=== PATIENT | male | born 1970 | race Caucasian/White ===

== ENCOUNTER 2019-09-14 21:08 | Emergency (ER) | payer MEDICAID ==
[~2019-09-14] VITALS: Ht 180.3 cm; Wt 77.3 kg
[2019-09-14 21:11] VITALS: BP 144/83
[2019-09-14] MEDS ORDERED: PHEN100C4 PO (23:19)
[2019-09-14] MEDS ORDERED: LISI40TA4 PO (23:19)
[2019-09-14] MEDS ORDERED: AMLO10TA48 PO (23:19)
[2019-09-14] MEDS ORDERED: CARI3CAP PO (23:19)
[2019-09-14] MEDS ORDERED: PREG150C PO (23:19)
== END 2019-09-14 23:30 | disposition home or self-care (01) ==
LOC: ER 21:10
DX: M25.551 Pain in right hip (principal); I10 Essential (primary) hypertension; G89.29 Other chronic pain; F31.9 Bipolar disorder, unspecified; F17.200 Nicotine dependence, unspecified, uncomplicated; Z86.69 Personal history of other diseases of the nervous system and sense organs; Z79.899 Other long term (current) drug therapy
CPT/HCPCS: 99281; 99283

== ENCOUNTER 2019-09-17 12:54 | Emergency (ER) | payer MEDICAID ==
[~2019-09-17] VITALS: Ht 180.3 cm; Wt 80.0 kg
[~2019-09-17 12:54] MED LIST: AMLO10TA48 PO; CARI3CAP PO; LISI40TA4 PO; PHEN100C4 PO; PREG150C PO
[2019-09-17 12:57] VITALS: BP 148/81
[2019-09-17 17:29] LABS: ALANINE AMINOTRANSFERASE 36 U/L (12-78); ALBUMIN 3.3 G/DL (3.4-5.0); ALKALINE PHOSPHATASE 95 IU/L (46-116); ANION GAP 4 (8-16); ASPARTATE AMINO TRANSFERASE 29 U/L (10-37); BILIRUBIN,TOTAL 0.2 MG/DL (0.1-1.0); BLOOD UREA NITROGEN 15 MG/DL (7-18); BUN/CREATININE RATIO 18.5 (5.4-32.0); CALCIUM 8.7 MG/DL (8.5-10.1); CHLORIDE 106 MMOL/L (99-107); CREATININE 0.81 MG/DL (0.60-1.10); GLUCOSE 105 MG/DL (70-104); POTASSIUM 3.7 MMOL/L (3.5-5.1); SODIUM 139 MMOL/L (135-145); TOTAL CARBON DIOXIDE 28.6 MMOL/L (24-32); TOTAL PROTEIN 6.7 G/DL (6.4-8.2); eGFR > 90 ML/MIN
[2019-09-17] MEDS ORDERED: DOXY100C43 PO (17:38)
--- NOTE | 2019-09-17 17:56 | NUR ---
PT GIVEN PRINTED RX FOR DOXY. PT STATES "I CANT TAKE IT IT MAKES ME SPIT UP. I AM NOT ALLERGIC TO IT, IT JUST MAKES ME SPIT UP." INFORMED SHELL, SHE STATES THIS IS THE BEST ABX FOR HIS CONDITION, ENCOURAGE HIM TO TAKE IT WITH FOOD. INFORMED PT HE STATES UNDERSTANDING
== END 2019-09-17 18:07 | disposition home or self-care (01) ==
LOC: ER 12:55
DX: S60.413A Abrasion of left middle finger, initial encounter (principal); L03.012 Cellulitis of left finger; I10 Essential (primary) hypertension; G89.29 Other chronic pain; F31.9 Bipolar disorder, unspecified; R51 Headache; R11.10 Vomiting, unspecified; F17.200 Nicotine dependence, unspecified, uncomplicated; Z72.89 Other problems related to lifestyle; Z86.69 Personal history of other diseases of the nervous system and sense organs; Z79.899 Other long term (current) drug therapy; W26.8XXA Contact with other sharp object(s), not elsewhere classified, initial encounter; Y93.89 Activity, other specified; Y92.89 Other specified places as the place of occurrence of the external cause; Y99.8 Other external cause status
CPT/HCPCS: 36415; 80053; 99283

== ENCOUNTER 2019-09-20 07:52 | Emergency (ER) | payer MEDICAID ==
[~2019-09-20] VITALS: Ht 180.3 cm; Wt 78.8 kg
[~2019-09-20 07:52] MED LIST changes: +DOXY100C43 PO
[2019-09-20 07:57] VITALS: BP 153/90
--- NOTE | 2019-09-20 08:13 | NUR ---
APPLY APX OINTMENT TO LEFT MIDDLE FINGER WOUND AND APPLY GAUZE WITH TAPE. PT GIVEN ABX OINTMENT PACKETS FOR HOME.
== END 2019-09-20 08:19 | disposition home or self-care (01) ==
LOC: ER 07:53
DX: S60.413D Abrasion of left middle finger, subsequent encounter (principal); L03.012 Cellulitis of left finger; I10 Essential (primary) hypertension; G89.29 Other chronic pain; Z79.899 Other long term (current) drug therapy; W26.0XXD Contact with knife, subsequent encounter
CPT/HCPCS: 99281

== ENCOUNTER 2020-12-07 19:49 | Emergency (ER) | payer MEDICAID ==
[~2020-12-07] VITALS: Ht 177.8 cm; Wt 77.5 kg
[~2020-12-07 19:49] MED LIST changes: -DOXY100C43 PO; -LISI40TA4 PO
[2020-12-07 20:21] VITALS: BP 169/91
[2020-12-07] MEDS ORDERED: ketorolac tromethamine 15mg/ml inj. IM ONE (21:00)
[2020-12-07] MEDS ORDERED: cyclobenzaprine 10mg tablet PO ONE (21:00)
[2020-12-07] MEDS ORDERED: CYCL-1 PO (21:26)
[2020-12-07] MEDS ORDERED: IBUP-1984 PO (21:26)
== END 2020-12-07 21:47 | disposition home or self-care (01) ==
LOC: ER 19:50
DX: M25.561 Pain in right knee (principal); M25.551 Pain in right hip; G89.29 Other chronic pain; M79.604 Pain in right leg; I10 Essential (primary) hypertension; F31.9 Bipolar disorder, unspecified; F19.90 Other psychoactive substance use, unspecified, uncomplicated; Z86.69 Personal history of other diseases of the nervous system and sense organs; Z72.89 Other problems related to lifestyle; Z79.899 Other long term (current) drug therapy
CPT/HCPCS: 96372; 99283; J1885

== ENCOUNTER 2021-01-29 10:14 | Emergency (ER) | payer MEDICAID ==
[~2021-01-29] VITALS: Ht 177.8 cm; Wt 75.0 kg
[~2021-01-29 10:14] MED LIST changes: +CYCL-1 PO
[2021-01-29] MEDS ORDERED: naloxone 2mg/2ml inj IV ONE (10:50)
[2021-01-29] MEDS ORDERED: normal saline 1000ML IV soln IVB ONE (10:50)
[2021-01-29 11:06] LABS: BASOPHILS % (AUTO) 0.7 % (0-1); EOSINOPHILS # (AUTO) 0.1 X10'3 (0-0.9); EOSINOPHILS % (AUTO) 1.8 % (0-6); HEMOGLOBIN 10.9 g/dl (14.0-17.9); LYMPHOCYTES # (AUTO) 1.3 X10'3 (1.1-4.8); LYMPHOCYTES % (AUTO) 20.5 % (21-51); MEAN CORPUSCULAR HEMOGLOBIN 30.2 PG (27.0-31.0); MEAN CORPUSCULAR VOLUME 88.7 FL (78-98); MEAN PLATELET VOLUME 7.5 FL (7.4-10.4); MONOCYTES # (AUTO) 0.6 X10'3 (0-0.9); MONOCYTES % (AUTO) 8.7 % (2-12); NEUTROPHILS # (AUTO) 4.4 X10'3 (1.8-7.7); NEUTROPHILS % (AUTO) 68.3 % (42-75); PLATELET COUNT 218 X10'3 (140-440); RED BLOOD COUNT 3.61 X10'6 (4.70-6.10); RED CELL DISTRIBUTION WIDTH 13.6 % (11.5-14.5); WHITE BLOOD COUNT 6.5 X10'3 (4.5-11.0)
[2021-01-29 11:35] LABS: ALANINE AMINOTRANSFERASE 40 U/L (12-78); ALBUMIN 2.9 G/DL (3.4-5.0); ALBUMIN/GLOBULIN RATIO 0.8 (1.1-1.5); ALKALINE PHOSPHATASE 94 IU/L (46-116); ANION GAP 8 (8-16); ASPARTATE AMINO TRANSFERASE 31 U/L (10-37); BILIRUBIN,TOTAL 0.7 MG/DL (0.1-1.0); BLOOD UREA NITROGEN 20 MG/DL (7-18); BUN/CREATININE RATIO 19.4 (5.4-32.0); CALCIUM 7.6 MG/DL (8.5-10.1); CHLORIDE 110 MMOL/L (99-107); CREATININE 1.03 MG/DL (0.60-1.10); GLUCOSE 93 MG/DL (70-104); POTASSIUM 3.1 MMOL/L (3.5-5.1); SODIUM 143 MMOL/L (135-145); TOTAL CARBON DIOXIDE 25.1 MMOL/L (24-32); TOTAL PROTEIN 6.5 G/DL (6.4-8.2); eGFR 76 ML/MIN
[2021-01-29 11:45] LABS: ETHANOL < 0.010 GM/DL (0.0-0.010); TROPONIN I < 0.04 NG/ML (0.0-0.05)
[2021-01-29 12:03] LABS: URINE AMPHETAMINE SCREEN POSITIVE (Neg); URINE BARBITUATE SCREEN NEGATIVE (Neg); URINE BENZODIAZEPINES SCREEN NEGATIVE (Neg); URINE CANNABINOID SCREEN NEGATIVE (Neg); URINE COCAINE SCREEN NEGATIVE (Neg); URINE METHADONE SCREEN NEGATIVE (Neg); URINE OPIATE SCREEN NEGATIVE (Neg); URINE PHENCYCLIDINE SCREEN NEGATIVE (Neg)
[2021-01-29 12:08] LABS: CLARITY,URINE CLEAR (Clear); COLOR,URINE YELLOW (Yellow); GLUCOSE, URINE NEGATIVE (Neg); KETONES,URINE TRACE mg/dl (Neg); LEUKOCYTE ESTERASE ,URINE NEGATIVE (Neg); NITRITES, URINE NEGATIVE (Neg); OCCULT BLOOD,URINE TRACE-LYSED (Neg); PROTEIN,URINE NEGATIVE (Neg); UROBILINOGEN,URINE 0.2 E.U/dL (0.2-1.0)
[2021-01-29 12:19] LABS: UA COLLECTION TYPE STRAIGHT CATH
[2021-01-29 12:21] LABS: SQUAMOUS EPITHELIAL CELL,UR FEW /LPF (FEW); TRANSITIONAL EPI CELLS,URINE FEW /HPF
[2021-01-29 12:22] LABS: BACTERIA,URINE NONE SEEN /HPF (Neg); CAL OXALATE CRYSTALS 1+ /HPF (NEGATIVE); RBC,URINE 0-2 /HPF (0-2); WBC,URINE 0-4 /HPF (0-4)
[2021-01-29] MEDS ORDERED: nitroGLYCERIN 0.4mg/hour patch TD ONE (13:40)
[2021-01-29 15:52] LABS: PHENYTOIN (DILANTIN) < 0.5 UG/ML (10.0-20.0)
[2021-01-29 16:26] VITALS: BP 145/106
== END 2021-01-29 18:08 | disposition home or self-care (01) ==
LOC: ER 10:15
DX: F15.10 Other stimulant abuse, uncomplicated (principal); R41.82 Altered mental status, unspecified; R45.1 Restlessness and agitation; I10 Essential (primary) hypertension; G89.29 Other chronic pain; F31.9 Bipolar disorder, unspecified; F19.90 Other psychoactive substance use, unspecified, uncomplicated; Z86.69 Personal history of other diseases of the nervous system and sense organs; Z72.89 Other problems related to lifestyle; Z79.899 Other long term (current) drug therapy
CPT/HCPCS: 36415; 70450; 71045; 80053; 80185; 80305; 80320; 81001; 84484; 85025; 93005; 96374; 99285; J2310; J7030

== ENCOUNTER 2021-03-21 21:07 | Emergency (ER) | payer MEDICAID ==
[~2021-03-21] VITALS: Ht 180.3 cm; Wt 75.0 kg
[2021-03-21 21:28] VITALS: BP 143/78
[2021-03-22] MEDS ORDERED: ketorolac tromethamine 15mg/ml inj. IM ONE (02:40)
== END 2021-03-22 02:38 | disposition home or self-care (01) ==
LOC: ER 21:08
DX: S16.1XXA Strain of muscle, fascia and tendon at neck level, initial encounter (principal); I10 Essential (primary) hypertension; G89.29 Other chronic pain; F31.9 Bipolar disorder, unspecified; F15.90 Other stimulant use, unspecified, uncomplicated; F19.90 Other psychoactive substance use, unspecified, uncomplicated; Z86.69 Personal history of other diseases of the nervous system and sense organs; Z72.89 Other problems related to lifestyle; Z79.899 Other long term (current) drug therapy; W19.XXXA Unspecified fall, initial encounter; Y93.89 Activity, other specified; Y92.89 Other specified places as the place of occurrence of the external cause; Y99.8 Other external cause status
CPT/HCPCS: 96372; 99283; J1885

== ENCOUNTER 2021-04-12 19:59 | Emergency (ER) | payer MEDICAID ==
[~2021-04-12] VITALS: Ht 180.3 cm; Wt 77.3 kg
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
[2021-04-12 20:39] LABS: BASOPHILS # (AUTO) 0.1 X10'3 (0-0.2); BASOPHILS % (AUTO) 0.5 % (0-1); EOSINOPHILS # (AUTO) 0.2 X10'3 (0-0.9); EOSINOPHILS % (AUTO) 1.6 % (0-6); HEMATOCRIT 35.4 % (42.0-52.0); HEMOGLOBIN 11.7 g/dl (14.0-17.9); LYMPHOCYTES # (AUTO) 1.3 X10'3 (1.1-4.8); LYMPHOCYTES % (AUTO) 10.3 % (21-51); MEAN CORPUSCULAR HEMOGLOBIN 29.7 PG (27.0-31.0); MEAN CORPUSCULAR HGB CONC 33.1 g/dL (33.0-36.5); MEAN CORPUSCULAR VOLUME 89.8 FL (78-98); MEAN PLATELET VOLUME 7.3 FL (7.4-10.4); MONOCYTES % (AUTO) 7.5 % (2-12); NEUTROPHILS # (AUTO) 10.4 X10'3 (1.8-7.7); NEUTROPHILS % (AUTO) 80.1 % (42-75); PLATELET COUNT 318 X10'3 (140-440); RED BLOOD COUNT 3.94 X10'6 (4.70-6.10)
[2021-04-12 20:56] LABS: ALANINE AMINOTRANSFERASE 24 U/L (12-78); ALBUMIN 3.4 G/DL (3.4-5.0); ALBUMIN/GLOBULIN RATIO 0.7 (1.1-1.5); ALKALINE PHOSPHATASE 130 IU/L (46-116); ANION GAP 6 (8-16); ASPARTATE AMINO TRANSFERASE 23 U/L (10-37); BILIRUBIN,TOTAL 0.5 MG/DL (0.1-1.0); BLOOD UREA NITROGEN 28 MG/DL (7-18); BUN/CREATININE RATIO 21.7 (5.4-32.0); CHLORIDE 94 MMOL/L (99-107); CREATININE 1.29 MG/DL (0.60-1.10); GLUCOSE 111 MG/DL (70-104); POTASSIUM 3.1 MMOL/L (3.5-5.1); SODIUM 126 MMOL/L (135-145); TOTAL CARBON DIOXIDE 25.8 MMOL/L (24-32); TOTAL PROTEIN 8.3 G/DL (6.4-8.2); eGFR 59 ML/MIN
[2021-04-12] MEDS ORDERED: temazepam 15mg capsule PO PRN (21:00)
[2021-04-12] MEDS ORDERED: iohexol 300mg/ml 100ml inj. ONE (21:06)
[2021-04-12] MEDS ORDERED: piperacillin/tazo 4.5gm/100ml 100 ML IV ONE (21:17)
[2021-04-12] MEDS ORDERED: VANCOMYCIN 1,500MG inj. 1,500 MG in normal saline 500ml IV soln 300 ML IV ONE (21:18)
[2021-04-12 21:21] LABS: C-REACTIVE PROTEIN 3.55 MG/DL (0.0-0.5)
[2021-04-12] MEDS ORDERED: ondansetron/PF 4mg/2ml inj IV PRN (21:45)
[2021-04-12] MEDS ORDERED: acetaminophen 325mg tablet PO PRN ×2 (21:45)
[2021-04-12] MEDS ORDERED: morphine 2 MG/ML inj. syringe IV PRN ×2 (21:45)
[2021-04-12] MEDS ORDERED: diphenhydrAMINE 25mg capsule PO PRN (21:45)
[2021-04-12] MEDS ORDERED: potassium Cl 20 mEq SR tablet PO PRN (21:45)
[2021-04-12] MEDS ORDERED: magnesium hydroxide 30ml (MOM) UD suspension PO PRN (21:45)
[2021-04-12] MEDS ORDERED: HYDROmorphone inj. 0.5 MG/0.5 ML DISP.SYRIN IV PRN (21:45)
[2021-04-12] MEDS ORDERED: mag hydrox/Alum hydrox/simeth 30ml oral suspension PO PRN (21:45)
[2021-04-12] MEDS ORDERED: bisacodyl 10mg suppository rectal RC PRN (21:45)
[2021-04-12] MEDS ORDERED: diphenhydrAMINE 50 mg/ml inj IV PRN (21:45)
[2021-04-12] MEDS ORDERED: HYDROcodone/acetaminophen 5mg/325mg tablet PO PRN (21:45)
[2021-04-12] MEDS ORDERED: ondansetron 4mg rapidly disintigrating tab PO PRN (21:45)
[2021-04-12] MEDS ORDERED: normal saline 1000ml 1,000 ML IV SCH (21:45)
[2021-04-12] MEDS ORDERED: HYDROcodone/acetaminophen 10/325mg tab PO PRN (21:45)
[2021-04-12] MEDS ORDERED: potassium Cl 40MEQ/1/2NS 520ml 520 ML IV PRN ×2 (21:45)
[2021-04-12 22:07] LABS: PARTIAL THROMBOPLASTIN TIME 31 SECONDS (22-32)
[2021-04-12 22:31] LABS: MAGNESIUM 1.8 MG/DL (1.5-2.4); PHOSPHORUS 3.1 MG/DL (2.3-4.5)
[2021-04-12 22:47] LABS: PHENYTOIN (DILANTIN) < 0.5 UG/ML (10.0-20.0)
[2021-04-12 23:08] LABS: CLARITY,URINE CLEAR (Clear); COLOR,URINE YELLOW (Yellow); UA COLLECTION TYPE URINAL
[2021-04-12 23:09] LABS: GLUCOSE, URINE NEGATIVE (Neg); KETONES,URINE NEGATIVE (Neg); LEUKOCYTE ESTERASE ,URINE NEGATIVE (Neg); NITRITES, URINE NEGATIVE (Neg); OCCULT BLOOD,URINE NEGATIVE (Neg); PROTEIN,URINE TRACE mg/dl (Neg); UROBILINOGEN,URINE 0.2 E.U/dL (0.2-1.0)
[2021-04-12 23:10] LABS: BACTERIA,URINE NONE SEEN /HPF (Neg); MUCUS STRANDS NONE SEEN /LPF (Neg); RBC,URINE NONE SEEN /HPF (0-2); SQUAMOUS EPITHELIAL CELL,UR NONE SEEN /LPF (FEW); WBC,URINE 0-4 /HPF (0-4)
[2021-04-12] MEDS ORDERED: NO HOME MEDS (23:25)
[2021-04-12] MEDS: potassium Cl 20 mEq SR tablet PO PRN (23:47)
[2021-04-12] MEDS: LORazepam 2 mg/ml vial IV SCH (23:57)
[2021-04-13] MEDS ORDERED: labetalol 20mg/4ml (5mg/ml) syringe IV ONE (00:10)
[2021-04-13] MEDS ORDERED: tetanus & diphtheria toxoid (Td) vaccine 0.5ml IMVAC ONE (02:00)
--- NOTE | 2021-04-13 02:28 | NUR ---
pt refused ct scan. explained procedure to pt and pt stated "I just had one, I dont need another" pt bp 170/90, hr 60, rr 19. aware
[2021-04-13] MEDS: LORazepam 2 mg/ml vial IV SCH (04:00)
[2021-04-13] MEDS: potassium Cl 20 mEq SR tablet PO PRN (04:07)
[2021-04-13 07:19] VITALS: BP 147/99
[2021-04-13] MEDS ORDERED: LISI20TA28 PO (07:30)
[2021-04-13] MEDS ORDERED: METO50TA16 PO (07:30)
[2021-04-13] MEDS ORDERED: PHEN100C12 PO (07:30)
[2021-04-13] MEDS ORDERED: pantoprazole 40mg Tablet.DR PO SCH (07:30)
--- NOTE | 2021-04-13 07:55 | NUR ---
PATIENT GETTING UP OUT OF BED, STATING HE WANTS TO LEAVE NOW, "...I WANT TO FUCKING LEAVE NOW...". IV TAKEN OUT, CATHETER INTACT, REFUSES TO SIGN AMA FORM, DR [facility]PITAL[facility] PAGED.
[2021-04-13 07:58] LABS: BASOPHILS % (AUTO) 0.5 % (0-1); EOSINOPHILS # (AUTO) 0.1 X10'3 (0-0.9); EOSINOPHILS % (AUTO) 1.4 % (0-6); HEMATOCRIT 32.7 % (42.0-52.0); HEMOGLOBIN 11.1 g/dl (14.0-17.9); LYMPHOCYTES % (AUTO) 9.5 % (21-51); MEAN CORPUSCULAR HGB CONC 33.9 g/dL (33.0-36.5); MEAN CORPUSCULAR VOLUME 88.4 FL (78-98); MEAN PLATELET VOLUME 7.1 FL (7.4-10.4); MONOCYTES # (AUTO) 0.8 X10'3 (0-0.9); MONOCYTES % (AUTO) 8.2 % (2-12); NEUTROPHILS # (AUTO) 8.2 X10'3 (1.8-7.7); NEUTROPHILS % (AUTO) 80.4 % (42-75); PLATELET COUNT 270 X10'3 (140-440); RED CELL DISTRIBUTION WIDTH 13.7 % (11.5-14.5); WHITE BLOOD COUNT 10.2 X10'3 (4.5-11.0)
[2021-04-13] MEDS ORDERED: heparin, porcine 5000 units/ml vial SQ SCH (08:00)
[2021-04-13] MEDS ORDERED: docusate sod 100mg capsule PO SCH (08:00)
[2021-04-13] MEDS ORDERED: piperacillin/tazo 4.5gm/100ml 100 ML IV SCH (08:00)
[2021-04-13] MEDS ORDERED: nicotine 21mg patch - 24 hr TD SCH (08:00)
[2021-04-13] MEDS ORDERED: K and/or MAG REPLACEMENT MC SCH (08:00)
[2021-04-13] MEDS ORDERED: vancomycin/NS 1 GM ADD-VANTAGE 250 ML IV SCH (09:00)
[2021-04-13 10:17] LABS: ALANINE AMINOTRANSFERASE 35 U/L (12-78); ALBUMIN 2.9 G/DL (3.4-5.0); BLOOD UREA NITROGEN 16 MG/DL (7-18); BUN/CREATININE RATIO 15.2 (5.4-32.0); CALCIUM 8.6 MG/DL (8.5-10.1); CREATININE 1.05 MG/DL (0.60-1.10); GLUCOSE 107 MG/DL (70-104); eGFR 74 ML/MIN
[2021-04-13 10:18] LABS: ALBUMIN/GLOBULIN RATIO 0.6 (1.1-1.5); ANION GAP 11 (8-16); BILIRUBIN,TOTAL 0.9 MG/DL (0.1-1.0); CHLORIDE 101 MMOL/L (99-107); POTASSIUM 3.6 MMOL/L (3.5-5.1); SODIUM 138 MMOL/L (135-145); TOTAL CARBON DIOXIDE 26.1 MMOL/L (24-32); TOTAL PROTEIN 7.5 G/DL (6.4-8.2)
[2021-04-13 10:19] LABS: ALKALINE PHOSPHATASE 114 IU/L (46-116); ASPARTATE AMINO TRANSFERASE 32 U/L (10-37); CHOL/HDL RATIO 2.1 (0.00-4.99); CHOLESTEROL 109 MG/DL (0-200); HDL CHOLESTEROL 51 MG/DL (35-60); LDL CHOLESTEROL 49 MG/DL (50-100); TRIGLYCERIDES 39 MG/DL (20-135)
[2021-04-14] MEDS ORDERED: VANCOMYCIN LEVEL IV ONE (20:30)
== END 2021-04-13 08:01 | disposition left against medical advice (07) | DRG 383 ==
LOC: ER 20:00 → ED HOLD 21:43 → UNDOADMIN 21:43 → ED HOLD 04-13 08:01 → UNDODISIN 04-13 08:01
PROC: BQ2S1ZZ Computerized Tomography (CT Scan) of Left Lower Extremity using Low Osmolar Contrast (ICD-10-PCS; principal; 2021-04-12)
DX: L03.116 Cellulitis of left lower limb (principal); N17.9 Acute kidney failure, unspecified; E87.1 Hypo-osmolality and hyponatremia; S81.801A Unspecified open wound, right lower leg, initial encounter; L03.115 Cellulitis of right lower limb; E87.6 Hypokalemia; F11.10 Opioid abuse, uncomplicated; X58.XXXA Exposure to other specified factors, initial encounter; F15.10 Other stimulant abuse, uncomplicated; G40.909 Epilepsy, unspecified, not intractable, without status epilepticus; G89.29 Other chronic pain; Z53.29 Procedure and treatment not carried out because of patient's decision for other reasons; I12.9 Hypertensive chronic kidney disease with stage 1 through stage 4 chronic kidney disease, or unspecified chronic kidney disease; N18.9 Chronic kidney disease, unspecified; Z59.0 Homelessness; Z72.0 Tobacco use; Y93.89 Activity, other specified; Y92.89 Other specified places as the place of occurrence of the external cause; Y99.8 Other external cause status; Z71.6 Tobacco abuse counseling
CPT/HCPCS: 36415; 71045; 73590; 73701; 80053; 80061; 80185; 81001; 83036; 83605; 83735; 83880; 84100; 84145; 85025; 85610; 85730; 86140; 87040; 90715; 99285; G0378; J2543; J3370; J3490; J7030; J7040; Q9967

== ENCOUNTER 2021-05-27 22:44 | Emergency (ER) | payer MEDICAID ==
[~2021-05-27] VITALS: Ht 180.3 cm; Wt 77.3 kg
[~2021-05-27 22:44] MED LIST changes: -AMLO10TA48 PO; -CARI3CAP PO; -CYCL-1 PO; +LISI20TA28 PO; +METO50TA16 PO; +PHEN100C12 PO; -PHEN100C4 PO; -PREG150C PO
[2021-05-27] MEDS ORDERED: acetaminophen 325mg tablet PO ONE (23:45)
[2021-05-27] MEDS ORDERED: ibuprofen tablet 400 MG TABLET PO ONE (23:45)
[2021-05-28 01:02] VITALS: BP 135/87
== END 2021-05-28 01:04 | disposition home or self-care (01) ==
LOC: ER 22:45
DX: M16.11 Unilateral primary osteoarthritis, right hip (principal); G89.29 Other chronic pain; M25.561 Pain in right knee; I10 Essential (primary) hypertension; F31.9 Bipolar disorder, unspecified; F15.10 Other stimulant abuse, uncomplicated; Z79.899 Other long term (current) drug therapy; W19.XXXA Unspecified fall, initial encounter; Y93.89 Activity, other specified; Y92.89 Other specified places as the place of occurrence of the external cause; Y99.8 Other external cause status
CPT/HCPCS: 72192; 73502; 99284

== ENCOUNTER 2021-05-30 18:38 | Emergency (ER) | payer MEDICAID ==
[~2021-05-30] VITALS: Ht 180.3 cm; Wt 72.0 kg
[2021-05-30 19:46] VITALS: BP 144/84
[2021-05-31] MEDS ORDERED: SULF1TAB49 PO (01:30)
[2021-05-31] MEDS ORDERED: HYDROcodone/acetaminophen 10/325mg tab PO ONE (01:30)
[2021-05-31] MEDS ORDERED: naproxen 500mg tablet PO ONE (01:30)
[2021-05-31] MEDS ORDERED: sulfamethoxazole/trimethoprim DS (800/160mg) tablet PO ONE (01:30)
[2021-05-31] MEDS ORDERED: NAPR-56 PO (01:30)
== END 2021-05-31 01:16 | disposition left against medical advice (07) ==
LOC: ER 18:39
DX: L03.116 Cellulitis of left lower limb (principal); M79.605 Pain in left leg; M25.552 Pain in left hip; G89.29 Other chronic pain; M25.551 Pain in right hip; I10 Essential (primary) hypertension; F31.9 Bipolar disorder, unspecified; F17.200 Nicotine dependence, unspecified, uncomplicated; F15.90 Other stimulant use, unspecified, uncomplicated; F19.90 Other psychoactive substance use, unspecified, uncomplicated; Z71.6 Tobacco abuse counseling; Z86.69 Personal history of other diseases of the nervous system and sense organs; Z72.89 Other problems related to lifestyle; Z79.2 Long term (current) use of antibiotics; Z79.899 Other long term (current) drug therapy
CPT/HCPCS: 99284; 99406

== ENCOUNTER 2022-08-19 21:14 | Emergency (ER) | payer SELFPAY ==
[~2022-08-19] VITALS: Ht 177.8 cm; Wt 86.4 kg
[2022-08-19 21:25] VITALS: BP 181/91
== END 2022-08-19 23:40 | disposition home or self-care (01) ==
LOC: ER 21:15
DX: M79.605 Pain in left leg (principal); G89.29 Other chronic pain; F31.9 Bipolar disorder, unspecified; I10 Essential (primary) hypertension; F17.200 Nicotine dependence, unspecified, uncomplicated; F15.90 Other stimulant use, unspecified, uncomplicated; Z72.89 Other problems related to lifestyle; Z79.899 Other long term (current) drug therapy
CPT/HCPCS: 99283

== ENCOUNTER 2022-08-22 20:06 | Emergency (ER) | payer MEDICAID, OTHER ==
[~2022-08-22] VITALS: Ht 177.8 cm; Wt 84.0 kg
[2022-08-23 00:37] VITALS: BP 178/101
[2022-08-23] MEDS ORDERED: LISI20TA28 PO (02:41)
[2022-08-23] MEDS ORDERED: PHEN100C12 PO (02:42)
[2022-08-23] MEDS ORDERED: METO50TA16 PO (02:42)
== END 2022-08-23 02:58 | disposition home or self-care (01) ==
LOC: ER 20:07
DX: Z76.0 Encounter for issue of repeat prescription (principal); I10 Essential (primary) hypertension; G89.29 Other chronic pain; F31.9 Bipolar disorder, unspecified; F17.200 Nicotine dependence, unspecified, uncomplicated; F15.20 Other stimulant dependence, uncomplicated
CPT/HCPCS: 99283

== ENCOUNTER 2022-08-24 00:45 | Emergency (ER) | payer MEDICAID, OTHER ==
[~2022-08-24] VITALS: Ht 177.8 cm; Wt 84.2 kg
[2022-08-24 01:13] VITALS: BP 163/85
== END 2022-08-24 04:55 | disposition home or self-care (01) ==
LOC: ER 00:46
DX: M79.672 Pain in left foot (principal); M25.552 Pain in left hip; I10 Essential (primary) hypertension; G89.29 Other chronic pain; F31.9 Bipolar disorder, unspecified; F15.90 Other stimulant use, unspecified, uncomplicated; F19.90 Other psychoactive substance use, unspecified, uncomplicated; Z86.69 Personal history of other diseases of the nervous system and sense organs; Z72.89 Other problems related to lifestyle; Z79.899 Other long term (current) drug therapy
CPT/HCPCS: 73630; 99284

== ENCOUNTER 2022-08-26 03:48 | Emergency (ER) | payer MEDICAID, OTHER ==
[~2022-08-26] VITALS: Ht 177.8 cm; Wt 84.1 kg
[2022-08-26 03:56] VITALS: BP 154/83
== END 2022-08-26 04:19 | disposition home or self-care (01) ==
LOC: ER 03:49
DX: L85.3 Xerosis cutis (principal); M79.671 Pain in right foot; I10 Essential (primary) hypertension; G89.29 Other chronic pain; F31.9 Bipolar disorder, unspecified; F15.90 Other stimulant use, unspecified, uncomplicated; F19.90 Other psychoactive substance use, unspecified, uncomplicated; Z86.69 Personal history of other diseases of the nervous system and sense organs; Z72.89 Other problems related to lifestyle; Z79.899 Other long term (current) drug therapy
CPT/HCPCS: 99281

== ENCOUNTER 2022-08-27 21:44 | Emergency (ER) | payer MEDICAID, OTHER ==
[~2022-08-27] VITALS: Ht 177.8 cm; Wt 86.4 kg
[2022-08-27 22:01] VITALS: BP 146/75
== END 2022-08-27 22:38 | disposition home or self-care (01) ==
LOC: ER 21:45
DX: M79.641 Pain in right hand (principal); I10 Essential (primary) hypertension; G89.29 Other chronic pain; F31.9 Bipolar disorder, unspecified; F15.20 Other stimulant dependence, uncomplicated
CPT/HCPCS: 99281

== ENCOUNTER 2022-08-29 04:53 | Emergency (ER) | payer MEDICAID ==
[~2022-08-29] VITALS: Ht 177.8 cm; Wt 83.6 kg
[2022-08-29] MEDS ORDERED: IBUP-1986 PO (08:16)
[2022-08-29] MEDS ORDERED: HYDR-3965 PO (08:16)
[2022-08-29 08:20] VITALS: BP 155/86
== END 2022-08-29 08:22 | disposition home or self-care (01) ==
LOC: ER 04:54
DX: G89.29 Other chronic pain (principal); M54.2 Cervicalgia; R51.9 Headache, unspecified; I10 Essential (primary) hypertension; F31.9 Bipolar disorder, unspecified; F15.90 Other stimulant use, unspecified, uncomplicated; Z79.899 Other long term (current) drug therapy
CPT/HCPCS: 72040; 99283

== ENCOUNTER 2022-08-30 04:25 | Emergency (ER) | payer MEDICAID ==
[~2022-08-30] VITALS: Ht 177.8 cm; Wt 82.8 kg
[~2022-08-30 04:25] MED LIST changes: +HYDR-3965 PO; +IBUP-1986 PO
[2022-08-30 04:27] VITALS: BP 160/100
--- NOTE | 2022-08-30 05:56 | NUR ---
pt in room, in no apparent distress.
== END 2022-08-30 06:29 | disposition home or self-care (01) ==
LOC: ER 04:26
DX: Z00.00 Encounter for general adult medical examination without abnormal findings (principal); G89.29 Other chronic pain; F31.9 Bipolar disorder, unspecified; G62.9 Polyneuropathy, unspecified; I10 Essential (primary) hypertension; F15.90 Other stimulant use, unspecified, uncomplicated; Z72.89 Other problems related to lifestyle; Z79.899 Other long term (current) drug therapy
CPT/HCPCS: 73610; 99284

== ENCOUNTER 2022-09-01 23:37 | Emergency (ER) | payer MEDICAID ==
[~2022-09-01] VITALS: Ht 177.8 cm; Wt 84.1 kg
[2022-09-02 00:33] VITALS: BP 187/110
== END 2022-09-02 08:03 | disposition left against medical advice (07) ==
LOC: ER 23:38
DX: R05.9 Cough, unspecified (principal); Z53.21 Procedure and treatment not carried out due to patient leaving prior to being seen by health care provider
CPT/HCPCS: 71046

== ENCOUNTER 2022-09-13 22:15 | Emergency (ER) | payer MEDICAID ==
[~2022-09-13] VITALS: Ht 177.8 cm; Wt 81.8 kg
[~2022-09-13 22:15] MED LIST changes: -HYDR-3965 PO
[2022-09-13 22:22] VITALS: BP 160/90
[2022-09-14] MEDS ORDERED: DOXYCYCLINE 100MG CAPSULE PO STA (00:17)
[2022-09-14] MEDS ORDERED: HYDROcodone & chlorphen. 10-8mg/5ml oral susp. PO ONE (00:20)
[2022-09-14] MEDS ORDERED: DOXY150T5 PO (00:21)
[2022-09-14] MEDS ORDERED: GUAI-692 PO (00:21)
[2022-09-14] MEDS ORDERED: guaiFENesin/codeine phos 10ml UD oral syrup PO ONE (00:30)
== END 2022-09-14 01:35 | disposition home or self-care (01) ==
LOC: ER 22:17
DX: J20.9 Acute bronchitis, unspecified (principal); I10 Essential (primary) hypertension; G89.29 Other chronic pain; F31.9 Bipolar disorder, unspecified; F15.20 Other stimulant dependence, uncomplicated
CPT/HCPCS: 71045; 99283

== ENCOUNTER 2022-09-18 10:47 | Emergency (ER) | payer MEDICAID ==
[~2022-09-18] VITALS: Ht 177.8 cm; Wt 80.0 kg
[~2022-09-18 10:47] MED LIST changes: +DOXY150T5 PO; +GUAI-692 PO
[2022-09-18 11:07] VITALS: BP 174/106
[2022-09-18] MEDS ORDERED: CEPH250T PO (12:15)
[2022-09-19] MEDS ORDERED: FLUT16SP2 BOTHNARES (01:40)
== END 2022-09-18 12:31 | disposition home or self-care (01) ==
LOC: ER 10:48
DX: L03.221 Cellulitis of neck (principal); S50.811A Abrasion of right forearm, initial encounter; I10 Essential (primary) hypertension; F31.9 Bipolar disorder, unspecified; F15.20 Other stimulant dependence, uncomplicated; V89.1XXA Person injured in unspecified nonmotor-vehicle accident, nontraffic, initial encounter; Y93.89 Activity, other specified; Y92.89 Other specified places as the place of occurrence of the external cause; Y99.8 Other external cause status
CPT/HCPCS: 99283

== ENCOUNTER 2022-09-19 00:53 | Emergency (ER) | payer MEDICAID ==
[~2022-09-19] VITALS: Ht 177.8 cm; Wt 85.0 kg
[~2022-09-19 00:53] MED LIST changes: +CEPH250T PO
[2022-09-19 00:59] VITALS: BP 179/97
[2022-09-19] MEDS ORDERED: FLUT16SP2 BOTHNARES (01:40)
== END 2022-09-19 02:11 | disposition home or self-care (01) ==
LOC: ER 00:54
DX: S82.832G Other fracture of upper and lower end of left fibula, subsequent encounter for closed fracture with delayed healing (principal); J31.0 Chronic rhinitis; F31.9 Bipolar disorder, unspecified; I10 Essential (primary) hypertension; F15.10 Other stimulant abuse, uncomplicated; G89.29 Other chronic pain; Z79.899 Other long term (current) drug therapy; Z79.2 Long term (current) use of antibiotics; Z79.1 Long term (current) use of non-steroidal anti-inflammatories (NSAID); X58.XXXD Exposure to other specified factors, subsequent encounter
CPT/HCPCS: 99283

== ENCOUNTER 2022-09-19 23:48 | Emergency (ER) | payer MEDICAID ==
[~2022-09-19] VITALS: Ht 177.8 cm; Wt 81.8 kg
[~2022-09-19 23:48] MED LIST changes: +FLUT16SP2 BOTHNARES
[2022-09-19 23:57] VITALS: BP 181/92
[2022-09-20] MEDS ORDERED: ibuprofen tablet 400 MG TABLET PO ONE (01:15)
[2022-09-20] MEDS ORDERED: cephalexin 250mg capsule PO ONE (01:15)
== END 2022-09-20 02:00 | disposition home or self-care (01) ==
LOC: ER 23:48
DX: L03.115 Cellulitis of right lower limb (principal); I10 Essential (primary) hypertension; G89.29 Other chronic pain; F15.10 Other stimulant abuse, uncomplicated; F31.9 Bipolar disorder, unspecified; Z79.899 Other long term (current) drug therapy; Z79.1 Long term (current) use of non-steroidal anti-inflammatories (NSAID); Z79.2 Long term (current) use of antibiotics
CPT/HCPCS: 93971; 99284

== ENCOUNTER 2024-09-14 14:52 | Emergency (ER) | payer MEDICAID ==
[~2024-09-14] VITALS: Ht 177.8 cm; Wt 92.4 kg
[~2024-09-14 14:52] MED LIST changes: -CEPH250T PO; -DOXY150T5 PO; -GUAI-692 PO
[2024-09-14] MEDS: hydrOXYzine 25 MG tablet PO ONE (15:58)
[2024-09-14 16:26] LABS: BASOPHILS % (AUTO) 0.5 % (0-1); EOSINOPHILS # (AUTO) 0.1 X10'3 (0-0.9); EOSINOPHILS % (AUTO) 1.4 % (0-6); HEMATOCRIT 39.7 % (42.0-52.0); HEMOGLOBIN 13.6 g/dl (14.0-17.9); LYMPHOCYTES # (AUTO) 1.2 X10'3 (1.1-4.8); LYMPHOCYTES % (AUTO) 15.2 % (21-51); MEAN CORPUSCULAR HEMOGLOBIN 30.9 PG (27.0-31.0); MEAN CORPUSCULAR HGB CONC 34.3 g/dL (33.0-36.5); MEAN PLATELET VOLUME 7.9 FL (7.4-10.4); MONOCYTES # (AUTO) 0.6 X10'3 (0-0.9); NEUTROPHILS # (AUTO) 6.2 X10'3 (1.8-7.7); NEUTROPHILS % (AUTO) 75.9 % (42-75); PLATELET COUNT 369 X10'3 (140-440); RED BLOOD COUNT 4.41 X10'6 (4.70-6.10); RED CELL DISTRIBUTION WIDTH 13.8 % (11.5-14.5); WHITE BLOOD COUNT 8.2 X10'3 (4.5-11.0)
[2024-09-14 16:56] LABS: ALANINE AMINOTRANSFERASE 22 U/L (12-78); ALBUMIN 3.1 G/DL (3.4-5.0); ALBUMIN/GLOBULIN RATIO 0.6 (1.1-1.5); ALKALINE PHOSPHATASE 79 IU/L (46-116); ANION GAP 10 (8-16); ASPARTATE AMINO TRANSFERASE 18 U/L (10-37); BILIRUBIN,TOTAL 0.4 MG/DL (0.1-1.0); BLOOD UREA NITROGEN 12 MG/DL (7-18); BUN/CREATININE RATIO 12.4 (10.0-20.0); CHLORIDE 103 MMOL/L (99-107); CREATININE 0.97 MG/DL (0.60-1.10); GLUCOSE 100 MG/DL (70-104); POTASSIUM 3.4 MMOL/L (3.5-5.1); SODIUM 138 MMOL/L (135-145); TOTAL CARBON DIOXIDE 25.4 MMOL/L (24-32); TOTAL PROTEIN 7.9 G/DL (6.4-8.2); eCRCL 90 ML/MIN; eGFR 81 ML/MIN
[2024-09-14 17:04] LABS: URINE AMPHETAMINE SCREEN POSITIVE (Neg); URINE BARBITUATE SCREEN NEGATIVE (Neg); URINE BENZODIAZEPINES SCREEN NEGATIVE (Neg); URINE CANNABINOID SCREEN NEGATIVE (Neg); URINE COCAINE SCREEN NEGATIVE (Neg); URINE METHADONE SCREEN NEGATIVE (Neg); URINE OPIATE SCREEN NEGATIVE (Neg); URINE PHENCYCLIDINE SCREEN NEGATIVE (Neg)
[2024-09-14] MEDS ORDERED: BENZ-38 PO (17:11)
[2024-09-14] MEDS ORDERED: HYDR-3686 PO (17:11)
[2024-09-14] MEDS ORDERED: AZIT-164 PO (17:11)
[2024-09-14 17:27] VITALS: BP 148/88; PULSE 78; RESP 16; TEMP 98.1; O2SAT 98
== END 2024-09-14 17:28 | disposition home or self-care (01) ==
LOC: ER 14:53
DX: F15.10 Other stimulant abuse, uncomplicated (principal); B34.9 Viral infection, unspecified; I10 Essential (primary) hypertension; F31.9 Bipolar disorder, unspecified; G62.9 Polyneuropathy, unspecified; F10.90 Alcohol use, unspecified, uncomplicated; Z79.899 Other long term (current) drug therapy; Y90.9 Presence of alcohol in blood, level not specified
CPT/HCPCS: 36415; 80053; 80305; 85025; 99283; Q0177

== ENCOUNTER 2024-10-13 21:51 | Emergency (ER) | payer MEDICAID ==
[~2024-10-13] VITALS: Ht 177.8 cm; Wt 91.5 kg
[~2024-10-13 21:51] MED LIST changes: +BENZ-38 PO; +HYDR-3686 PO
[2024-10-13 22:06] VITALS: BP 137/76
[2024-10-13] MEDS ORDERED: ALBU8HFA PO (23:41)
[2024-10-13 23:44] VITALS: TEMP 97.2
[2024-10-13] MEDS: dexamethasone 4mg tablet PO ONE (23:53)
[2024-10-14] MEDS: ipratropium/albuterol 3ml nebule NEB ONE
[2024-10-14 00:01] VITALS: PULSE 88; RESP 18; O2SAT 98
[2024-10-14 00:06] VITALS: PULSE 77; RESP 17
[2024-10-15] MEDS ORDERED: QUET-1 PO (07:35)
== END 2024-10-14 00:18 | disposition home or self-care (01) ==
LOC: ER 21:52
DX: R05.9 Cough, unspecified (principal); I11.0 Hypertensive heart disease with heart failure; I50.9 Heart failure, unspecified; F15.90 Other stimulant use, unspecified, uncomplicated
CPT/HCPCS: 94640; 94760; 99283

== ENCOUNTER 2024-10-15 06:18 | Emergency (ER) | payer MEDICAID ==
[~2024-10-15] VITALS: Ht 182.9 cm; Wt 90.9 kg
[~2024-10-15 06:18] MED LIST changes: +ALBU8HFA PO
[2024-10-15] MEDS ORDERED: QUET-1 PO (07:35)
[2024-10-15] MEDS: quetiapine 100mg tablet PO STA (07:47)
[2024-10-15 07:58] VITALS: BP 149/94; PULSE 103; RESP 18; TEMP 98.9; O2SAT 98
== END 2024-10-15 08:00 | disposition home or self-care (01) ==
LOC: ER 06:19
DX: R05.9 Cough, unspecified (principal); F31.9 Bipolar disorder, unspecified; I10 Essential (primary) hypertension; G89.29 Other chronic pain; G62.9 Polyneuropathy, unspecified; F15.90 Other stimulant use, unspecified, uncomplicated; F19.90 Other psychoactive substance use, unspecified, uncomplicated; Z76.0 Encounter for issue of repeat prescription; Z79.1 Long term (current) use of non-steroidal anti-inflammatories (NSAID); Z79.899 Other long term (current) drug therapy
CPT/HCPCS: 71046; 99283

== ENCOUNTER 2024-10-25 09:27 | Emergency (ER) | payer MEDICAID ==
[~2024-10-25] VITALS: Ht 177.8 cm; Wt 90.3 kg
[~2024-10-25 09:27] MED LIST changes: -BENZ-38 PO; -HYDR-3686 PO
[2024-10-25 09:57] VITALS: BP 166/94; PULSE 93; TEMP 97.2; O2SAT 97
[2024-10-25 11:03] VITALS: RESP 16
[2024-10-25] MEDS: ketorolac trometh 15mg/ml vial 15 MG/ML ML IM ONE (11:03)
== END 2024-10-25 12:03 | disposition home or self-care (01) ==
LOC: ER 09:28
DX: S83.8X1A Sprain of other specified parts of right knee, initial encounter (principal); I10 Essential (primary) hypertension; F15.90 Other stimulant use, unspecified, uncomplicated; F19.90 Other psychoactive substance use, unspecified, uncomplicated; G62.9 Polyneuropathy, unspecified; F31.9 Bipolar disorder, unspecified; G89.29 Other chronic pain; Z79.52 Long term (current) use of systemic steroids; Z79.1 Long term (current) use of non-steroidal anti-inflammatories (NSAID); Z79.899 Other long term (current) drug therapy; W18.39XA Other fall on same level, initial encounter; Y93.89 Activity, other specified; Y92.89 Other specified places as the place of occurrence of the external cause; Y99.8 Other external cause status
CPT/HCPCS: 29505; 73564; 96372; 99283; J1885